=== PATIENT | female | born 1950 | race Two or more races ===

== ENCOUNTER 2021-01-29 11:46 | Outpatient (REF) | payer MEDICARE, SELFPAY ==
--- NOTE | ~2021-01-29 | XR_ITS ---
EXAMINATION: XR KNEE, RIGHT CLINICAL INFORMATION: Pain COMPARISON: None TECHNIQUE: Four views of the right knee. FINDINGS: Bones and soft tissues are normal. No fracture or joint effusion. Alignment is anatomic. Joint spaces are well maintained. No abnormal soft tissue calcification. XR/XR knee RT 3V IMPRESSION: Normal right knee.
== END 2021-01-29 11:47 | disposition home or self-care (01) ==
LOC: HO.XRAY 11:46
PROVIDERS: PCP Internal Medicine; Visit Provider Internal Medicine
DX: M25.561 Pain in right knee (principal)
CPT/HCPCS: 73562

== ENCOUNTER 2021-02-06 10:06 | Outpatient (REF) | payer MEDICARE, SELFPAY ==
[2021-02-06 10:43] LABS: Basophils Absolute Auto 0.1 X10*3/uL (0.0-0.2); Basophils Percent Auto 1.1 % (0-2); Eosinophils Absolute Auto 0.1 X10*3/uL (0.0-0.4); Eosinophils Percent Auto 2.1 % (0-4); Hematocrit 37.6 % (37-47); Hemoglobin 12.3 g/dl (12.0-16.0); Imm Gran Abs Auto 0.01 X10*3/uL (0.00-0.03); Imm Gran Pct Auto 0.2 % (0.0-0.4); Lymphocytes Absolute Auto 3.1 X10*3/uL (1.2-4.9); Lymphocytes Percent Auto 47.8 % (20-40); MANUAL DIFF FLAG NO; Mean Corpuscular HGB Conc 32.7 g/dl (31.0-35.0); Mean Corpuscular Hemoglobin 29.8 pg (27.0-33.0); Mean Platelet Volume 9.8 fL (9.4-12.3); Monocytes Absolute Auto 0.6 X10*3/uL (0.1-1.2); Monocytes Percent Auto 8.4 % (2-11); Neutrophils Absolute Auto 2.7 X10*3/uL (2.0-8.3); Neutrophils Percent Auto 40.4 % (45-73); Platelet Count 286 X10*3/uL (160-400); Red Blood Count 4.13 X10*6/uL (4.20-5.50); Red Cell Distribution Width 13.1 % (11.0-16.0); White Blood Count 6.6 X10*3/uL (4.8-10.8)
[2021-02-06 11:18] LABS: Alanine Aminotransferase 11 U/L (0-31); Albumin Level 4.5 g/dL (3.5-5.0); Alkaline Phosphatase 56 U/L (39-117); Anion Gap 11 (12-20); Aspartate Amino Transferase 18 U/L (5-31); Bilirubin Total 0.9 mg/dL (0.0-1.0); Blood Urea Nitrogen 9 mg/dL (9-16); Calcium 9.7 mg/dL (8.4-10.2); Carbon Dioxide 33 mmol/L (22-29); Chloride 98 mmol/L (96-108); Cholesterol 211 mg/dL; Estimated Glomerular Filt Rate > 60; Glucose Fasting 98 mg/dL (60-99); HDL Cholesterol 77 mg/dL; LDL Cholesterol Calculated 119 mg/dl; Potassium 3.8 mmol/L (3.3-5.1); Sodium 138 mmol/L (135-145); Total Protein 7.2 g/dL (6.5-8.0); Triglycerides 79 mg/dL
[2021-02-06 11:38] LABS: TSH reflex Free T4 0.38 uIU/mL (0.32-4.0)
[2021-02-07 05:12] LABS: Thyroid Peroxidase Antibodies <1 IU/mL (<9)
[2021-02-07 09:07] LABS: Thyroglobulin Antibodies <1 IU/mL (< or = 1)
[2021-02-11 13:56] LABS: Vitamin D 25-OH, D2 <4 ng/mL; Vitamin D 25-OH, D3 13 ng/mL; Vitamin D 25-OH, Total 13 ng/mL (30-100)
== END 2021-02-06 10:07 | disposition home or self-care (01) ==
LOC: HO.LAB 10:06
PROVIDERS: PCP Internal Medicine; Visit Provider Internal Medicine
DX: D64.9 Anemia, unspecified (principal); R11.0 Nausea; I10 Essential (primary) hypertension; E78.5 Hyperlipidemia, unspecified; E04.1 Nontoxic single thyroid nodule; E55.9 Vitamin D deficiency, unspecified
CPT/HCPCS: 36415; 80053; 80061; 82306; 84443; 85025; 86376; 86800

== ENCOUNTER 2021-02-17 12:46 | Outpatient (REF) | payer MEDICARE, SELFPAY ==
--- NOTE | ~2021-02-17 | US_ITS ---
EXAMINATION: US THYROID CLINICAL INFORMATION: Nontoxic single thyroid nodule. COMPARISON: None TECHNIQUE: Linear transducer grayscale and color Doppler examination with attention to the region of the thyroid. FINDINGS: SIZE: Measurements of the thyroid lobes and nodules are given in sagittal, anteroposterior and transverse dimensions respectively. Right Thyroid Lobe: 4.4 x 1.9 x 1.9 cm, volume 8.6 mL. Parenchyma: The gland echotexture is heterogeneous. Thyroid vascularity is normal. Left Thyroid Lobe: 4.5 x 1.7 x 2.0 cm, volume 7.9 mL. Parenchyma: The gland echotexture is heterogeneous. Thyroid vascularity is normal. Isthmus: 0.4 cm in maximum AP dimension. Estimated total number of nodules greater than or equal to 1 cm: 3. 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 Location: Right superior. Size: 1.5 x 0.8 x 1.0 cm, volume 0.64 mL. Nodule characteristics: Composition: Solid (2). Echogenicity: Isoechoic (1). Shape: Not taller than wide (0). Margins: Smooth (0). Echogenic Foci: None (0). ACR TI-RADS total points: 0 ACR TI-RADS category: 3 2. Location: Left mid. Size: 0.8 x 0.7 x 1.0 cm, volume 0.29 mL. Nodule characteristics: Composition: Spongiform (0). Echogenicity: Anechoic (0). Shape: Not taller than wide (0). Margins: Smooth (0). Echogenic Foci: None (0). ACR TI-RADS total points: 0 ACR TI-RADS category: 1 3. Location: Left inferior. Size: 1.8 x 1.2 x 1.7 cm, volume 0.84 mL. Nodule characteristics: Composition: Mixed cystic and solid (1). Echogenicity: Hypoechoic (2). Shape: Not taller than wide (0). Margins: Smooth (0). Echogenic Foci: None (0). ACR TI-RADS total points: 3 ACR TI-RADS category: 3 4. Location: Left mid. Size: 0.4 x 0.5 x 0.7 cm, volume 0.08 mL. Nodule characteristics: Composition: Mixed cystic and solid (1). Echogenicity: Hypoechoic (2). Shape: Not taller than wide (0). Margins: Smooth (0). Echogenic Foci: Punctate echogenic foci (3). ACR TI-RADS total points: 6 ACR TI-RADS category: 4 NODES: No lymphadenopathy is seen in the tissue surrounding the thyroid gland. US/US thyroid IMPRESSION: Bilateral thyroid nodules. Nodules do not meet ACR TI RADS criteria for FNA or imaging follow-up as described below. ACR TI-RADS RECOMMENDATION REFERENCE: Ultrasound-guided fine-needle aspiration, followup ultrasound, no further follow up. * TR1 (0 point) and TR 2 (2 points): No FNA or follow up * TR3 (3 points): FNA if more than or equal to 2.5 cm in maximum dimension, followup ultrasound in 1, 3 and 5 years if 1.5 to 2.4 cm in maximum dimension. * TR4 (4-6 points): FNA if more than or equal to 1.5 cm in maximum dimension, followup ultrasound in 1, 2, 3 and 5 years if 1 to 1.4 cm in maximum dimension. * TR5 (more than or equal to 7 points): FNA if more than or equal to 1 cm in maximum dimension, followup ultrasound every year for 5 years if 0.5 to 0.9 cm in maximum dimension. * TR3, TR4 or TR5 nodules that are below the size threshold for follow up receive no follow up.
== END 2021-02-17 12:47 | disposition home or self-care (01) ==
LOC: HO.US 12:46
PROVIDERS: Visit Provider Internal Medicine
DX: E04.1 Nontoxic single thyroid nodule (principal)
CPT/HCPCS: 76536

== ENCOUNTER → 2021-02-19 10:04 | Outpatient (BNVA) | payer MEDICARE, SELFPAY | PROVIDERS: PCP Internal Medicine; Visit Provider Physician Assistant | DX: M17.11 Unilateral primary osteoarthritis, right knee (principal) | CPT/HCPCS: 99202 ==

== ENCOUNTER 2022-05-21 15:42 | Outpatient (REF) | payer MEDICARE, SELFPAY ==
--- NOTE | ~2022-05-21 | US_ITS ---
EXAMINATION: US THYROID CLINICAL INFORMATION: Nontoxic single thyroid nodule. COMPARISON: Thyroid ultrasound 02/17/2021. TECHNIQUE: Linear transducer grayscale and color Doppler examination with attention to the region of the thyroid. FINDINGS: SIZE: Measurements of the thyroid lobes and nodules are given in sagittal, anteroposterior and transverse dimensions respectively. Right Thyroid Lobe: 3.8 x 1.5 x 1.7 cm, volume 5.1 mL. Previously 4.4 x 1.9 x 1.9 cm, volume 8.5 mL. Parenchyma: The gland echotexture is heterogeneous. Thyroid vascularity is normal. Left Thyroid Lobe: 4.6 x 2.4 x 1.8 cm, volume 10.6 mL. Previously 4.5 x 1.7 x 2.0 cm, volume 7.9 mL. Parenchyma: The gland echotexture is heterogeneous. Thyroid vascularity is normal. Isthmus: 0.3 cm in maximum AP dimension. Previously 0.4 cm. Estimated total number of nodules greater than or equal to 1 cm: 2. Distillery Manager nodules are described as follows: 1. Location: Right upper pole. Size: 1.0 x 1.0 x 0.8 cm, volume 0.43 mL. Previously: 1.5 x 0.8 x 1.0 cm, volume 0.64 mL. Nodule characteristics: Composition: Spongiform (0). ACR TI-RADS total points: 0 Previous: 0 ACR TI-RADS category: 1 Previous: 1 Significant change in size (>/= 20% in 2 dimensions and minimal increase of 2 mm or 50% or greater increase in volume): Change in features: Change in ACR TI-RADS risk category: 2. Location: Left mid pole. Size: 0.8 x 0.7 x 0.6 cm, volume 0.17 mL. Previously: 0.8 x 0.7 x 1.0 cm, volume 0.29 mL. Nodule characteristics: Composition: Spongiform (0). ACR TI-RADS total points: 0 Previous: 0 ACR TI-RADS category: 1 Previous: 1 Significant change in size (>/= 20% in 2 dimensions and minimal increase of 2 mm or 50% or greater increase in volume): Change in features: Change in ACR TI-RADS risk category: 3. Location: Left lower pole. Size: 1.9 x 2.0 x 1.3 cm, volume 2.6 mL. Previously: 1.8 x 1.2 x 1.7 cm, volume 0.8 mL. Nodule characteristics: Composition: Mixed cystic and solid (1). Echogenicity: Hypoechoic (2). Shape: Not taller than wide (0). Margins: Smooth (0). Echogenic Foci: None (0). ACR TI-RADS total points: 3 Previous: 3 ACR TI-RADS category: 3 Previous: 3 Significant change in size (>/= 20% in 2 dimensions and minimal increase of 2 mm or 50% or greater increase in volume): Change in features: Change in ACR TI-RADS risk category: 4. Location: Left mid pole. Size: 0.9 x 0.6 x 0.7 cm, volume 0.14 mL. Previously: 0.4 x 0.5 x 0.7 cm, volume 0.08 mL. Nodule characteristics: Composition: Mixed cystic and solid (1). Echogenicity: Hypoechoic (2). Shape: Not taller than wide (0). Margins: Smooth (0). Echogenic Foci: Macrocalcifications (1). ACR TI-RADS total points: 4 Previous: 6 ACR TI-RADS category: 4 Previous: 4 Significant change in size (>/= 20% in 2 dimensions and minimal increase of 2 mm or 50% or greater increase in volume): Change in features: Change in ACR TI-RADS risk category: NODES: No lymphadenopathy is seen in the tissue surrounding the thyroid gland. US/US thyroid IMPRESSION: Slightly enlarged left lobe. There is interval increase in size in 2 left thyroid nodules, nodules 3 and 4. ACR TI-RADS RECOMMENDATION REFERENCE: Ultrasound-guided fine-needle aspiration, followup ultrasound, no further follow up. * TR1 (0 point) and TR 2 (2 points): No FNA or follow up * TR3 (3 points): FNA if more than or equal to 2.5 cm in maximum dimension, followup ultrasound in 1, 3 and 5 years if 1.5 to 2.4 cm in maximum dimension. * TR4 (4-6 points): FNA if more than or equal to 1.5 cm in maximum dimension, followup ultrasound in 1, 2, 3 and 5 years if 1 to 1.4 cm in maximum dimension. * TR5 (more than or equal to 7 points): FNA if more than or equal to 1 cm in maximum dimension, followup ultrasound every year for 5 years if 0.5 to 0.9 cm in maximum dimension. * TR3, TR4 or TR5 nodules that are below the size threshold for follow up receive no follow up.
== END 2022-05-21 15:43 | disposition home or self-care (01) ==
LOC: HO.US 15:42
PROVIDERS: Visit Provider Internal Medicine
DX: E04.1 Nontoxic single thyroid nodule (principal)
CPT/HCPCS: 76536

== ENCOUNTER 2022-05-26 08:05 | Outpatient (REF) | payer MEDICARE, SELFPAY ==
[2022-05-26 08:21] LABS: MANUAL DIFF FLAG NO
[2022-05-26 09:18] LABS: Basophils Absolute Auto 0.1 X10*3/uL (0.0-0.2); Basophils Percent Auto 0.9 % (0-2); Eosinophils Absolute Auto 0.2 X10*3/uL (0.0-0.4); Eosinophils Percent Auto 2.8 % (0-4); Hematocrit 38.9 % (37.0-47.0); Hemoglobin 12.9 g/dl (12.0-16.0); Imm Gran Abs Auto 0.01 X10*3/uL (0.00-0.03); Imm Gran Pct Auto 0.2 % (0.0-0.4); Lymphocytes Percent Auto 46.6 % (20-40); Mean Corpuscular HGB Conc 33.2 g/dl (31.0-35.0); Mean Corpuscular Hemoglobin 30.1 pg (27.0-33.0); Mean Corpuscular Volume 90.7 fL (80.0-98.0); Mean Platelet Volume 9.8 fL (9.4-12.3); Monocytes Absolute Auto 0.6 X10*3/uL (0.1-1.2); Monocytes Percent Auto 9.1 % (2-11); Neutrophils Absolute Auto 2.6 x10*3/uL (2.0-8.3); Neutrophils Percent Auto 40.4 % (45-73); Platelet Count 288 X10*3/uL (160-400); Red Blood Count 4.29 X10*6/uL (4.20-5.50); Red Cell Distribution Width 13.2 % (11.0-16.0); White Blood Count 6.5 X10*3/uL (4.8-10.8)
[2022-05-26 09:56] LABS: Alanine Aminotransferase 13 U/L (0-31); Albumin Level 4.5 g/dL (3.5-5.0); Alkaline Phosphatase 54 U/L (39-117); Anion Gap 11 (12-20); Aspartate Amino Transferase 20 U/L (5-31); Bilirubin Total 0.7 mg/dL (0.0-1.0); Blood Urea Nitrogen 10 mg/dL (9-16); Calcium 9.6 mg/dL (8.4-10.2); Carbon Dioxide 31 mmol/L (22-29); Chloride 98 mmol/L (96-108); Cholesterol 214 mg/dL; Estimated Glomerular Filt Rate > 60; Glucose Fasting 93 mg/dL (60-99); HDL Cholesterol 81 mg/dL; LDL Cholesterol Calculated 123 mg/dl; Potassium 4.3 mmol/L (3.3-5.1); Sodium 136 mmol/L (135-145); Total Protein 7.2 g/dL (6.5-8.0); Triglycerides 54 mg/dL
[2022-05-26 10:00] LABS: Free T4 (Free Thyroxine) 1.08 ng/dL (0.71-1.85); Thyroid Stimulating Hormone 0.68 uIU/mL (0.32-4.0)
[2022-05-31 14:13] LABS: Vitamin D 25-OH, D2 <4 ng/mL; Vitamin D 25-OH, D3 22 ng/mL; Vitamin D 25-OH, Total 22 ng/mL (30-100)
== END 2022-05-26 08:06 | disposition home or self-care (01) ==
LOC: HO.LAB 08:05
PROVIDERS: PCP Internal Medicine; Visit Provider Internal Medicine
DX: I10 Essential (primary) hypertension (principal); E04.1 Nontoxic single thyroid nodule; E78.5 Hyperlipidemia, unspecified; E55.9 Vitamin D deficiency, unspecified; D32.9 Benign neoplasm of meninges, unspecified; G89.29 Other chronic pain; M25.561 Pain in right knee
CPT/HCPCS: 36415; 80053; 80061; 82306; 84439; 84443; 85025

== ENCOUNTER 2024-07-06 08:10 | Outpatient (AMB) | payer MEDICARE, SELFPAY ==
--- NOTE | 2024-07-06 08:12 | AM.OFFWIN_ITS ---
Intake Vital Signs 07/06/24 08:13 Height 5 ft 1 in Weight 119 lb BMI 22.5 BP 138/88 Blood Pressure Location Lt brachial Position Sitting Pulse 81 Pulse Source Pulse Oximeter Temp 98.4 F Temp Source Oral Pulse Oximetry (%) 98 Oxygen Delivery Method Room Air Intake Visit Reasons: Arthritis in RIght hand pain, and weakness Intake Note: pt c/o RT hand pain and weakness. Started 2 weeks ago. Progressively worse Patient Tobacco Use Status: Former Tobacco user Allergies Hydrocodone-Acetaminophen Allergy (Intermediate, Verified 07/06/24 08:17) hives ibuprofen [From Advil] Allergy (Intermediate, Verified 07/06/24 08:17) Palpitations Do you need a note to return to daycare/school/sports/work: No HPI Arthritis in RIght hand pain, and weakness HPI Details This note is constructed using voice recognition software. 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 The patient is a 74 year old female who presents to the clinic today with right hand pain and weakness progressing over the last 2 weeks. She reports the pain to be in all joints of her hand and into her wrist, and leading inability to have range of motion. She has taken 1 Aleve on an occasional situation, which helped the pain. She does report history of arthritis, but this is typically not impacting her at great level. She denies fever, chills. She has not had any trauma to the area now or in the past, no surgeries to the hand or wrist. She denies numbness, tingling. She is right-hand dominant. [facility]LY [facility] Medical History Acute lateral meniscus tear of right knee Degenerative disc disease, cervical Dyslipidemia Essential hypertension Meningioma Nausea Right knee pain Thyroid nodule Surgical History History of History of left inguinal hernia Family History Mother Hypertension Father Hypertension Son Mental health disorder Social History Housing: Other Housing Other:: Mobile home Alcohol intake: never Patient Tobacco Use Status: Former Tobacco user Tobacco use type: Cigarette e-Cigarette/Vaping Use: Never Used Second Hand Smoke Exposure: No service: No Current occupational status: employed Cognitive needs: No Hearing needs: No Vision needs: No Review of Systems Const All systems reviewed & are unremarkable except as noted in HPI and below Physical Exam Vital Signs: Last Vital Signs Temp 98.4 F 07/06/24 08:13 Pulse 81 07/06/24 08:13 BP 138/88 07/06/24 08:13 Pulse Ox 98 07/06/24 08:13 Oxygen Delivery Method Room Air 07/06/24 08:13 BMI result Body Mass Index 22.5 Const General: cooperative, healthy appearing, comfortable, no acute distress and alert Orientation/consciousness: patient oriented x3 Limitations: no limitations Skin General skin exam: no rashes or lesions noted, elasticity normal and turgor normal Neuro General: patient oriented x3 Extrem Other: Reduced range of motion for hand and wrist due to pain, passive range of motion intact. 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 Patient wearing brace, able to remove the brace. Fingers 2 through 4 with lateral deviation and joint thickening at DIP and PIPs throughout. General: Yes capillary refill normal and Yes normal exam except as noted Psych Appearance: grossly normal Mental Status: mental status grossly normal Speech and movement: Normal speech and movement present Affect: normal affect Assessment & Plan Assessment & Plan (1) Pain in right hand: Code(s): M79.641 - Pain in right hand Plan: Likely multifactorial, appears to be both a tendinitis as well as arthritic contributing factors. Advised rest, compression, and NSAIDs for pain management. X-ray today ordered to evaluate for any additional contributing factors. Advised patient to follow up with PCP for long-term management if needed. (2) Pain in right wrist: Code(s): M25.531 - Pain in right wrist Plan: Likely multifactorial, appears to be both a tendinitis as well as arthritic contributing factors. Advised rest, compression, and NSAIDs for pain management. X-ray today ordered to evaluate for any additional contributing factors. Advised patient to follow up with PCP for long-term management if needed. Plan See above for full details and plan. Orders: Orders XR hand RT min 3V Today M79.641 - Pain in right hand XR wrist RT 2V Today M25.531 - Pain in right wrist Coding Level of Care Code Est Pt Level 4 (46349) Diagnoses Pain in right hand M79.641 Pain in right wrist M25.531 Time Spent (min) 25
[2024-07-06 08:13] VITALS: BP 138/88; PULSE 81; TEMP 36.9; O2SAT 98; BMI 22.5
== END 2024-07-06 09:07 | disposition home or self-care (01) ==
PROVIDERS: PCP Internal Medicine; Visit Provider Registered Nurse
DX: M79.641 Pain in right hand (principal); M25.531 Pain in right wrist
CPT/HCPCS: 99214

== ENCOUNTER 2024-07-06 08:45 | Outpatient (REF) | payer MEDICARE, SELFPAY ==
--- NOTE | ~2024-07-06 | XR_ITS ---
EXAMINATION: XR HAND/WRIST, RIGHT CLINICAL INFORMATION: Pain COMPARISON: None TECHNIQUE: PA, lateral, and oblique views of the right hand and wrist. FINDINGS: Decreased bone mineral density which decreases sensitivity for fracture evaluation. No acute visible fracture or dislocation. Multi joint arthritic changes greatest along the second through fifth proximal interphalangeal joints. Negative ulnar variance. Joint space alignment are maintained. Soft tissues are unremarkable. XR/XR hand wrist RT IMPRESSION: 1. Decreased bone mineral density which decreases sensitivity for fracture evaluation. 2. No acute visible fracture or dislocation. 3. Multi joint arthritic changes greatest along the second through fifth proximal interphalangeal joints. 4. Negative ulnar variance.
== END 2024-07-06 08:46 | disposition home or self-care (01) ==
LOC: HO.HMGCX 08:45
PROVIDERS: PCP Internal Medicine; Visit Provider Registered Nurse
DX: M79.641 Pain in right hand (principal)
CPT/HCPCS: 73110; 73130

== ENCOUNTER 2024-07-15 09:05 | Outpatient (AMB) | payer MEDICARE, SELFPAY ==
[2024-07-15 09:08] VITALS: BP 160/90; PULSE 97; O2SAT 97; BMI 22.5
--- NOTE | 2024-07-15 09:08 | AM.OFFWIN_ITS ---
Intake Vital Signs 07/15/24 09:08 Height 5 ft 1 in Weight 119 lb BMI 22.5 BP 160/90 H Blood Pressure Location Rt brachial Position Sitting Pulse 97 Pulse Source Pulse Oximeter Pulse Oximetry (%) 97 Oxygen Delivery Method Room Air Intake Visit Reasons: EP RT wrist Intake Note: pt is here for right wrist pain Patient Tobacco Use Status: Former Tobacco user Allergies Hydrocodone-Acetaminophen Allergy (Intermediate, Verified 07/15/24 09:08) hives ibuprofen [From Advil] Allergy (Intermediate, Verified 07/15/24 09:08) Palpitations Do you need a note to return to daycare/school/sports/work: No HPI HPI Comments History of Present Illness Details 74-year-old female who presents back to the urgent care for concern of right wrist pain. Patient was seen evaluated last week for right wrist pain and x-rays were taken and diagnosed with arthritis. She endorses same pain with now more pain centered on the wrist middle of the hand and decreased rat trapper strength. She also endorses some numbness and tingling in the 1st 3 digits. She knows that she had carpal tunnel surgery in 1999 back in [place] and was told that she could need for intervention later down the line. 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 She has been using a splint and taking Naprosyn with some relief [facility] Medical History Acute lateral meniscus tear of right knee Degenerative disc disease, cervical Dyslipidemia Essential hypertension Meningioma Nausea Right knee pain Thyroid nodule Surgical History History of History of left inguinal hernia Family History Mother Hypertension Father Hypertension Son Mental health disorder Social History Housing: Other Housing Other:: Mobile home Alcohol intake: never Patient Tobacco Use Status: Former Tobacco user Tobacco use type: Cigarette e-Cigarette/Vaping Use: Never Used Second Hand Smoke Exposure: No service: No Current occupational status: employed Cognitive needs: No Hearing needs: No Vision needs: No Physical Exam Vital Signs: Last Vital Signs Pulse 97 07/15/24 09:08 BP 160/90 H 07/15/24 09:08 Pulse Ox 97 07/15/24 09:08 Oxygen Delivery Method Room Air 07/15/24 09:08 BMI result Body Mass Index 22.5 Const General: cooperative, healthy appearing, no acute distress and alert Orientation/consciousness: patient oriented x3 Limitations: no limitations HEENT Head: Yes normal to inspection Ears: hearing grossly normal bilaterally General nose exam: Normal external nose present Resp Effort & Inspection: normal respiratory effort and able to speak in complete sentences Cardio Rate: regular rate Skin General skin exam: no rashes or lesions noted Neuro General: patient oriented x3 Extrem Other: No overt swelling of the right wrist no warmth or erythema. Ulnar deviation of the digits. Tenderness to palpation over the volar aspect of the wrist decreased sensation along the 1st 3 digits decreased rat trapper strength 2/5 of the right wrist compared to the left General: Yes normal to inspection Assessment & Plan Assessment & Plan (1) Wrist pain: Code(s): M25.539 - Pain in unspecified wrist Qualifiers: Laterality: right Qualified Code(s): M25.531 - Pain in right wrist Plan: Given physical exam patient presentation of suspicion is carpal tunnel. Patient likely will need evaluation from orthopedics. Redness injections or revision. Given already deviation there is a consideration of rheumatologic related arthritis. However given the only present in 1 hand lower suspicion. Do recommend patient follow-up with PCP to discuss possible rheumatologic causes. With tenderness to palpation over the volar aspect of the wrist numbness and tingling decreased rat trapper strength a positive Phalen test more suspicion of acute pain related to her carpal tunnel however both could be present. Plan -continue with symptomatic treatment splinting and OTC pain medications -orthopedic referral Orders: Referrals Orthopedics Referral M25.531 - Pain in right wrist Coding Level of Care Code Est Pt Level 3 (28822) Diagnoses Right wrist pain M25.531 Laterality: right
== END 2024-07-15 09:58 | disposition home or self-care (01) ==
PROVIDERS: PCP Internal Medicine; Visit Provider Physician Assistant
DX: M25.531 Pain in right wrist (principal)
CPT/HCPCS: 99213

== ENCOUNTER 2024-08-16 07:55 | Outpatient (AMB) | payer MEDICARE, SELFPAY ==
--- NOTE | 2024-08-16 08:20 | A.OFFVIS_ITS ---
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 Hx of Carpal Tunnel Release. Patient reports at the end of May she started feeling numbness and thought her CTS was returning. She started noticing her hand was turning laterally. She says her hand was severely swollen and she was waking up in the middle of the night with extreme throbbing pain so she went to [facility] in [facility] twice, 07/06/24 & 07/15/24. She is having complaints during this visit of throbbing pain. She can not walk with her hand hanging down as this causes her more pain so she walks with her hand against her chest. Her right hand is noticeably swollen. She is unable to make a full closed fist. She reports difficulty with any activities that involve her right hand. She expresses when her hand is not swollen she has more sensation in her hands. She sleeps with a glove at night to try and relief her pain. If she is not wearing the glove she has an exacerbation of pain. She has tried Tylenol and Aleve but found no relief. 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 Patient reports that she does have a history of carpal tunnel release on the right, done in approximately 2018 or 2019 and [place]. Today, the patient reports that she has been experiencing significant discomfort in her right hand since May, and then her numbness and tingling is intermittent, but daily, and much worse at night. Approximately 1 month ago, the patient states that she also noticed that all of her fingers began to deviate to the ulnar aspect, warranting further concern. Patient reports that she has continued to do as many activities of daily life as possible, but states that she does feel this is still limiting her ability to perform these activities significantly. Patient reports no other acute complaints or concerns at this time. [facility] Medical History Acute lateral meniscus tear of right knee Degenerative disc disease, cervical Dyslipidemia Essential hypertension Meningioma Nausea Right knee pain Thyroid nodule Surgical History History of History of left inguinal hernia Family History Mother Hypertension Father Hypertension Son Mental health disorder Social History (Updated 08/16/24 @ 08:23 by ROLLY Zepeda) Housing: Other Housing Other:: Mobile home Alcohol intake: never Patient Tobacco Use Status: Former Tobacco user Tobacco use type: Cigarette e-Cigarette/Vaping Use: Never Used Second Hand Smoke Exposure: No service: No Current occupational status: employed 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 Patient reports diminished sensation to the small finger of the left hand Bilateral thenar wasting noted No intrinsic wasting noted We can APB muscle belly firing bilaterally Good finger cross his Vascular: Capillary refill brisk. ROM: With encouragement, patient is able to get close to making a closed fist on the right, but is unable to fully close her fist due to pain Patient is able to make a closed fist on the left without difficulty Skin: No lacerations or abrasions noted. General: No ecchymosis. No erythema or evidence of infection. There is noted to be sagittal band dysfunction over the dorsal MCP joints of the right index and middle fingers, with the extensor tendon being ulnar deviated on both digits Results Reviewed Results Reviewed: X-rays obtained in the office today and independently reviewed by me, Carlo Rodriguez PA-C, demonstrate no fracture or acute bony abnormality. 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 Numbness and tingling of bilateral hands 2. 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 Right hand pain Ongoing since May Symptoms almost constant, daily, worse at night At this time, patient is referred for EMG and nerve conduction study to assess the health of the nerves of bilateral hands Patient is amenable to this plan Patient is also referred to Dr. Bustos, per Dr. Bustos request, for discussion of any potential intervention for ulnar deviation of her digits and sagittal band disruption, as these can be symptoms of rheumatoid arthritis Patient is also amenable to this plan Patient will follow-up with next available [address] 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
[2024-08-16 08:21] VITALS: BMI 22.5
== END 2024-08-16 08:56 | disposition home or self-care (01) ==
PROVIDERS: PCP Internal Medicine
DX: S66.392A Other injury of extensor muscle, fascia and tendon of right middle finger at wrist and hand level, initial encounter (principal); S66.390A Other injury of extensor muscle, fascia and tendon of right index finger at wrist and hand level, initial encounter; R20.0 Anesthesia of skin; R20.2 Paresthesia of skin
CPT/HCPCS: 99203

== ENCOUNTER → 2024-08-16 07:55 | Outpatient (BNVA) | payer MEDICARE, SELFPAY | PROVIDERS: PCP Internal Medicine | DX: M79.641 Pain in right hand (principal); S63.659A Sprain of metacarpophalangeal joint of unspecified finger, initial encounter; R20.0 Anesthesia of skin; R20.2 Paresthesia of skin; X58.XXXA Exposure to other specified factors, initial encounter; Y93.9 Activity, unspecified; Y92.9 Unspecified place or not applicable; Y99.9 Unspecified external cause status | CPT/HCPCS: 99202 ==

== ENCOUNTER 2024-12-04 15:37 | Outpatient (AMB) | payer MEDICARE, SELFPAY ==
--- NOTE | 2024-12-04 15:50 | MHC.PC.OV ---
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 Accompanied by: Self / Same As Patient Allergies Hydrocodone-Acetaminophen Allergy (Intermediate, Verified 12/04/24 15:54) hives ibuprofen [From Advil] Allergy (Intermediate, Verified 12/04/24 15:54) Palpitations Tobacco use date assessed: 12/04/24 Fall risk assessment: No Falls in past year Last assessed Fall Risk: 12/04/24 Dental Screening Dental Screen Date: 12/04/24 Did you have a dental visit in the last 12 months?: No Did you have a dental problem in the last 6 months where you did not have access to dental care?: No Was dental information given to patient?: Patient has dentist HPI HPI Comments History of Present Illness Details The patient is a 74-year-old female presenting with bilateral hand pain. She reports experiencing bilateral hand weakness, stiffness, and pain, particularly severe in the mornings. These symptoms have been present since April, with her hands becoming numb and the right hand being worse than the left. She described the pain sensation as significant, to the extent that she cannot perform simple tasks such as squeezing or combing her hair without difficulty. Additionally, she experiences intermittent numbness in her fingers. She referred to engaging in exercises available online, which have slightly helped in managing her symptoms. No formal consultation with a identity management consultant has occurred due to lengthy appointment wait times. In 2019, prior laboratory results showed negative anti-cyclic citrullinated peptide (CCP) and rheumatoid factor tests. Despite these findings, the patient describes the right-hand deformity and progressive weakness. She also noted symptoms in her feet, suggesting possible similar pathology. She maintains a high tolerance for pain and has avoided pharmacotherapy, preferring alternative therapies. She also has hypertension in which blood pressure is elevated today and will be recheck in 3 weeks by nurse navigator. She took her hydrochlorothiazide today. Has low vitamin-D on supplements. She declines colonoscopy, colon cancer screening test by Cologuard or fit and mammogram. [facility] Medical History (Updated 12/04/24 @ 20:25 by Nubia Lam MD) Meningioma Acute lateral meniscus tear of right knee Dyslipidemia Right knee pain Degenerative disc disease, cervical Nausea Essential hypertension Thyroid nodule Surgical History History of left inguinal hernia History of Family History Mother Hypertension Father Hypertension Son Mental health disorder Social History Housing: Other Housing Other:: Mobile home Alcohol intake: never Patient Tobacco Use Status: Former Tobacco user Tobacco use type: Cigarette e-Cigarette/Vaping Use: Never Used Second Hand Smoke Exposure: No service: No Current occupational status: employed 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 1. Little interest or pleasure in doing things: not at all 2. Feeling down, depressed, or hopeless: not at all 3. Trouble falling or staying asleep, or sleeping too much: not at all 4. Feeling tired or having little energy: not at all 5. Poor appetite or overeating: not at all 6. Feeling bad about yourself - or that you are a failure or have let yourself or your family down: not at all 7. Trouble concentrating on things, such as reading the newspaper or watching television: not at all 8. Moving or speaking so slowly that other people could have noticed. Or the opposite - being so fidgety or restless that you have been moving around a lot more than usual: not at all 9. Thoughts that you would be better off or of hurting yourself in some way: not at all Total score: 0 Depression Screening Interpretation: Negative Depression Screening Done: Yes 72106 - PHQ-9 Billing: Yes Source: Developed by Drs. Ronnie Brannon, Diamond Rodriguez, Ray Howard and colleagues, with an educational imani from [employer]. Thrive Questionnaire Date Thrive assessed: 12/04/24 I am a: Patient What is your living situation today?: I have a steady place to live Within the past 12 months, did the food you bought not last and you didn't have the money to get more?: Never true Within the past 12 months, did you worry whether your food would run out before you got money to buy more?: Never true Do you have trouble paying for medicines?: No Do you have trouble getting transportation to medical appointments?: No Do you have trouble paying your heating and electricity bill?: No Do you have trouble taking care of your child, family member or friend?: No Do you have trouble with day-to-day activities such as bathing, preparing meals, shopping, managing finances, etc.?: No Are you currently unemployed and looking for a job?: No Are you interested in more education?: No Please select the resources that you would like help with: None Currently or been in a relationship where the following occur: No concerns reported THRIVE Score: 0 AUDIT C Alcohol Use Questionnaire (AUDIT-C) 1. How often do you have a drink containing alcohol?: Never Total Score: 0 Score Reviewed/Action Taken: No PAN-7 AMB Questionnaire PAN-7 Date PAN - 7 assessed: 12/04/24 Feeling nervous, anxious, or on edge: 0 = Not at all Not being able to stop or control worryin = Not at all Worrying too much about different things: 0 = Not at all Trouble relaxin = Not at all Being so restless that it is hard to sit still: 0 = Not at all Becoming easily annoyed or irritable: 0 = Not at all Feeling afraid as if something awful might happen: 0 = Not at all Total PAN-7 score (0-4 normal; 5-9 mild; 10-14 moderate; 15-21 severe): 0 Source: Developed by Drs. Ronnie Brannon, Diamond Rodriguez, Ray Howard and colleagues, with an educational imani from [employer]. PAN-7 Assessment Billing PAN-7 Assessment Tool: PAN-7 Assessment 89723 Review of Systems Const All systems reviewed & are unremarkable except as noted in HPI and below Card Denies chest pain at rest, Denies chest pain with activity, Denies edema, Denies irregular heart rhythm, Denies claudication, Denies dyspnea, Denies dyspnea on exertion, Denies orthopnea, Denies paroxysmal nocturnal dyspnea and Denies slow heart rate Resp Denies cough, Denies dyspnea and Denies dyspnea on exertion GI Denies abdominal pain, Denies change in bowel habits, Denies excessive flatus, Denies nausea and Denies vomiting Musc Reports arthralgias and Reports numbness Neuro Reports numbness Physical exam (Primary Care) Vital Signs: Last Vital Signs BP 164/110 H 12/04/24 15:51 BMI result Body Mass Index 22.1 Tobacco/Smoking Status: Tobacco use Status Tobacco use date assessed 12/04/24 12/04/24 16:00 Patient Tobacco Use Status Former Tobacco user 12/04/24 16:00 Tobacco use type Cigarette 12/04/24 16:00 e-Cigarette/Vaping Use Never Used 12/04/24 16:00 PHQ-9: PHQ-9 Score PHQ-9: Total score 0 12/04/24 16:21 Depression Screening Interpretation: Negative Thrive Assessment: Date of Thrive Assessment Date Thrive assessed 12/04/24 12/04/24 16:00 Currently or been in a relationship where the following occur: No concerns reported Resp Effort & Inspection: normal respiratory effort Auscultation: clear to auscultation bilaterally Cardio Jugular venous distension: no JVD Rate: regular rate Rhythm: regular rhythm Heart sounds: S1 normal heart sound present and S2 normal heart sound present Extrem General: Yes full ROM Office Procedures Flu Questionnaire Does the patient have a severe egg allergy?: No Immunizations Fluarix Triv [id number] (PF) 45 mcg (15 mcg x 3)/0.5 mL IM syringe Performing Provider: Nubia Lam MD [facility] Documented (not given) by: SUSANA Muller on 12/04/24 16:02 Reason Not Given: Patient Refused Coding Level of Care Code Est Pt Level 4 (84590) Complex EM visit Add On G2211 Diagnoses Essential hypertension I10 Left hand pain M79.642 Right hand pain M79.641 Polyarthralgia M25.50 Hypovitaminosis D E55.9 Additional Codes PAN-7 Assessment Billing - PAN-7 Assessment Tool: PAN-7 Assessment 53461 ([id number]) PHQ-9 - 16188 - PHQ-9 Billing: Yes ([id number]) Time Spent (min) 22 Assessment & Plan Assessment & Plan (1) Essential hypertension: Code(s): I10 - Essential (primary) hypertension Category: Medical (2) Left hand pain: Code(s): M79.642 - Pain in left hand Category: Medical (3) Right hand pain: Code(s): M79.641 - Pain in right hand Category: Medical (4) Polyarthralgia: Code(s): M25.50 - Pain in unspecified joint Category: Medical (5) Hypovitaminosis D: Code(s): E55.9 - Vitamin D deficiency, unspecified Category: Medical Plan - Laboratory tests: Order repeat rheumatoid arthritis panels, including anti-CCP and rheumatoid factor. - Consider nerve conduction studies for further assessment of potential carpal tunnel syndrome. - Recommend consultation with a identity management consultant for comprehensive management of rheumatoid arthritis. - Consider vitamin and D measurements to assess contributing factors to musculoskeletal pain. Patient was informed and verbally consented to the use of an ambient scribe for clinic note documentation during this visit. I discussed with the patient the importance of maintaining regular check-ups given her age and chronic conditions. Reviewed her prior negative lab results and explained the need for updated testing to accurately monitor her rheumatoid arthritis. Emphasized the potential benefits of consulting a identity management consultant. Discussed the use of vitamin supplements for bone health, particularly in light of potential osteoporosis due to her age. Clarified that carpal tunnel syndrome might still be a consideration due to positive Tinel's sign. Informed her about the risks and benefits of both laboratory and nerve conduction tests. The patient expressed understanding but voiced a preference for minimal medical intervention, which will guide management decisions. Orders: Orders Influenza [id number] Immunization Today Z23 - Encounter for immunization XR hand RT 2V Today M79.641 - Pain in right hand XR hand LT 2V Today M79.642 - Pain in left hand XR DEXA axial skeleton Today Z78.0 - Asymptomatic menopausal state Vitamin B12 and Folate Today E53.8 - Deficiency of other specified B group vitamins Cyclic Citrullinated Peptide Today M25.50 - Pain in unspecified joint Vitamin D 25-OH Total Today E55.9 - Vitamin D deficiency, unspecified Lipid Panel Today E78.5 - Hyperlipidemia, unspecified Comprehensive [place]. Panel Fast Today M25.50 - Pain in unspecified joint Erythrocyte Sedimentation Rate Today M25.50 - Pain in unspecified joint Rheumatoid Factor Today M25.50 - Pain in unspecified joint Referrals Rheumatology Referral M25.50 - Pain in unspecified joint Orthopedics Referral M79.641 - Pain in right hand, M79.642 - Pain in left hand Patient Instructions: - Schedule and complete ordered lab tests for arthritis. - Consider scheduling an appointment with a identity management consultant. - Engage in continued exercises as previously beneficial. - Monitor symptoms and contact the office if there is a significant change. - Consider taking vitamin supplements for bone health. - Discuss any new symptoms during follow-up visits.
[2024-12-04 15:51] VITALS: BP 164/110; BMI 22.1
== END 2024-12-04 16:40 | disposition home or self-care (01) ==
PROVIDERS: PCP Internal Medicine; Visit Provider Internal Medicine
DX: I10 Essential (primary) hypertension (principal); M79.642 Pain in left hand; M79.641 Pain in right hand; M25.50 Pain in unspecified joint; E55.9 Vitamin D deficiency, unspecified; Z23 Encounter for immunization

== ENCOUNTER → 2024-12-04 15:37 | Outpatient (BNVA) | payer MEDICARE, SELFPAY | PROVIDERS: PCP Internal Medicine; Visit Provider Internal Medicine | DX: M79.642 Pain in left hand (principal); M79.641 Pain in right hand; M25.50 Pain in unspecified joint; E55.9 Vitamin D deficiency, unspecified; I10 Essential (primary) hypertension | CPT/HCPCS: 90471; 96127; 99212 ==

== ENCOUNTER 2024-12-15 07:12 | Outpatient (REF) | payer MEDICARE, SELFPAY ==
[2024-12-15 08:48] LABS: Alanine Aminotransferase 18 U/L (0-31); Albumin Level 4.1 g/dL (3.5-5.0); Anion Gap 11 (12-20); Aspartate Amino Transferase 27 U/L (5-31); Bilirubin Total 0.6 mg/dL (0.0-1.0); Blood Urea Nitrogen 9 mg/dL (9-16); Calcium 9.4 mg/dL (8.4-10.2); Carbon Dioxide 28 mmol/L (22-29); Chloride 103 mmol/L (96-108); Cholesterol 189 mg/dL (<200); Estimated Glomerular Filt Rate > 60; Glucose Fasting 92 mg/dL (60-99); HDL Cholesterol 77 mg/dL (>40); LDL Cholesterol Calculated 102 mg/dL (<100); Potassium 3.9 mmol/L (3.3-5.1); Sodium 138 mmol/L (135-145); Total Protein 7.3 g/dL (6.5-8.0); Triglycerides 50 mg/dL (<150)
[2024-12-15 08:57] LABS: Rheumatoid Factor < 13.0 IU/mL (<15.0)
[2024-12-15 09:11] LABS: Erythrocyte Sedimentation Rate 6 MM/HR (0-20)
[2024-12-15 09:16] LABS: Folate 9.3 ng/mL (> or = 4.0); Vitamin B12 287 pg/mL (200-900)
[2024-12-15 14:20] LABS: Alkaline Phosphatase 64 U/L (39-117)
[2024-12-19 07:09] LABS: Cyclic Citrullinated Peptide <16 UNITS
== END 2024-12-15 07:13 | disposition home or self-care (01) ==
LOC: HO.LAB 07:12
PROVIDERS: PCP Internal Medicine; Visit Provider Internal Medicine
DX: M25.50 Pain in unspecified joint (principal); E55.9 Vitamin D deficiency, unspecified; E53.8 Deficiency of other specified B group vitamins; E78.5 Hyperlipidemia, unspecified
CPT/HCPCS: 36415; 80053; 80061; 82306; 82607; 82746; 85652; 86200; 86431

== ENCOUNTER 2024-12-16 10:07 | Outpatient (REF) | payer MEDICARE, SELFPAY ==
--- NOTE | ~2024-12-16 | XR_ITS ---
EXAMINATION: XR HAND 1-2 VIEWS RIGHT HISTORY: M79.641 - Pain in right hand COMPARISON: Comparison is made with the prior examination dated 07/06/2024. FINDINGS: Three views of the right hand are submitted. The bones are osteopenic. There is no fracture or dislocation. There is ulnar deviation of the 3rd, 4th, and 5th fingers at the MCP joints. There is mild narrowing of the DIP and PIP joints of all the fingers. No erosions are seen. The soft tissues are unremarkable. XR/XR hand RT 2V IMPRESSION: Osteopenia and osteoarthritis of the DIP and PIP joints. Ulnar deviation of the 3rd through 5th fingers at the MCP joints. Electronically signed by: Ronnie Amin MD 12/18/2024 09:44 AM DOUG
--- NOTE | ~2024-12-16 | XR_ITS ---
EXAMINATION: XR HAND 1-2 VIEWS LEFT HISTORY: M79.642 - Pain in left hand COMPARISON: Comparison is made with the prior examination dated 03/13/2019. FINDINGS: Three views of the left hand are submitted. The bones are osteopenic. There is no fracture or dislocation. There is mild narrowing of the DIP and PIP joints. There is moderate to severe osteoarthritis of the 1st carpometacarpal joint with joint space narrowing and osteophyte formation. The soft tissues are unremarkable. XR/XR hand LT 2V IMPRESSION: Osteopenia. Severe osteoarthritis of the 1st carpometacarpal joint. Mild narrowing of the DIP and PIP joints. Electronically signed by: Ronnie Amin MD 12/18/2024 09:46 AM EST
--- OUTSIDE RECORDS SUMMARY | 2024-12-16 10:09 | XMS_ITS | Clinical Summary ---
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 Role Phone Unavailable Primary Care Provider Unavailabl e Social History Tobacco Use Types Packs/Day Years Used Date Smoking Tobacco: Never Assessed Sex and Gender Information Value Date Recorded Sex Assigned at Not on file Gender Identity Not on file Sexual Orientation Not on file Plan of Treatment Health Maintenance Due Date Last Done Comments Breast Cancer Screening 1950 DTaP,Tdap,and Td Vaccines (1 - Tdap) 1970 Zoster Vaccines (1 of 2) 2001 Pneumococcal Vaccine: 65+ Ye ars (1 of 1 - PCV) 02/14/2016 COVID-19 Vaccine ( - 2023-2 5 season) 2024 Influenza Vaccine (#1) 2024 RSV Immunization Patients 60 + Years Old (1 - 1-dose 75+ series) 2026 HIB Vaccines Aged Out No longer eligi ble based on patient's age to complete this topic HPV Vaccines Aged Out No longer eligi ble based on patient's age to complete this topic Hepatitis A Vaccines Aged Out No long er eligible based on patient's age to complete this topic Hepatitis B Vaccines Aged Out No long er eligible based on patient's age to complete this topic IPV Vaccines Aged Out No longer eligi ble based on patient's age to complete this topic MMR Vaccines Aged Out No longer eligi ble based on patient's age to complete this topic Meningococcal ACWY Vaccine Aged Out N o longer eligible based on patient's age to complete this topic RSV Immunization Patients Un martin 20 months Aged Out No longer eligible b ased on patient's age to complete this topic Varicella Vaccines Aged Out No longer eligible based on patient's age to complete this topic
== END 2024-12-16 10:08 | disposition home or self-care (01) ==
LOC: HO.XRAY 10:07
PROVIDERS: PCP Internal Medicine; Visit Provider Internal Medicine
DX: M79.641 Pain in right hand (principal); M79.642 Pain in left hand
CPT/HCPCS: 73120

== ENCOUNTER → 2024-12-16 10:13 | Outpatient (BNV) | payer MEDICARE, SELFPAY | PROVIDERS: PCP Internal Medicine; Visit Provider Radiology Diagnostic Radiology | DX: M85.841 Other specified disorders of bone density and structure, right hand (principal); M19.041 Primary osteoarthritis, right hand; M85.842 Other specified disorders of bone density and structure, left hand; M19.042 Primary osteoarthritis, left hand; M18.12 Unilateral primary osteoarthritis of first carpometacarpal joint, left hand; M20.001 Unspecified deformity of right finger(s) | CPT/HCPCS: 73120 ==

== ENCOUNTER 2025-01-03 07:47 | Outpatient (REF) | payer MEDICARE, SELFPAY ==
--- NOTE | ~2025-01-03 | XR_ITS ---
EXAMINATION: XR HAND, RIGHT CLINICAL INFORMATION: M79.641 - Pain in right hand COMPARISON: 12/16/2024. 07/06/2024. TECHNIQUE: PA, lateral, and oblique views of the right hand. FINDINGS: Three views of the right hand are submitted. The bones are osteopenic. There is no fracture or dislocation. There is ulnar deviation of the 3rd, 4th, and 5th fingers at the MCP joints, with associated joint space loss most significant third MCP. No definitive erosions evident. There is mild narrowing of the DIP and PIP joints of all the fingers, with productive bony changes. Mild to moderate osteoarthrosis first CMC joint and STT joints. Blunting of the ulnar styloid. Mild soft tissue prominence overlying the MCPs. XR/XR hand RT min 3V IMPRESSION: Osteopenia with associated multifocal arthropathy as described. Findings support changes of rheumatoid arthritis, likely in conjunction with degenerative arthritis. Electronically signed by: Candelario Ken MD 01/03/2025 08:30 AM DOUG
--- NOTE | ~2025-01-03 | XR_ITS ---
EXAMINATION: XR HAND, LEFT CLINICAL INFORMATION: M79.642 - Pain in left hand COMPARISON: December 16, 2024. TECHNIQUE: PA, lateral, and oblique views of the left hand. FINDINGS: There is a semiflexion position of the distal and proximal interphalangeal joints of the second digit. There is a asymmetric joint space narrowing involving the proximal and distal interphalangeal joints. Sclerotic articular surface of the first carpometacarpal joint. No acute cortical disruption or gross malalignment. Osteopenia versus osteoporosis. No metallic or radiopaque foreign body. No subcutaneous emphysema. XR/XR hand LT min 3V IMPRESSION: Osteoarthrosis, first carpometacarpal joint and interphalangeal joints of the digits. Electronically signed by: Michael Boswell MD 01/03/2025 08:28 AM DOUG SO
== END 2025-01-03 07:48 | disposition home or self-care (01) ==
LOC: HO.HOSX 07:47
PROVIDERS: PCP Internal Medicine
DX: M79.641 Pain in right hand (principal); M79.642 Pain in left hand; R20.0 Anesthesia of skin; R20.2 Paresthesia of skin
CPT/HCPCS: 73130; 99212

== ENCOUNTER 2025-01-03 07:47 | Outpatient (AMB) | payer MEDICARE, SELFPAY ==
--- OUTSIDE RECORDS SUMMARY | 2025-01-03 07:50 | XMS_ITS | Clinical Summary ---
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
--- NOTE | 2025-01-03 08:04 | MHC.OFFVIS ---
Vital Signs 01/03/25 08:20 Height 5 ft Weight 110 lb BMI 21.5 Handedness Right Intake Visit Reasons: OV - B/L hand pain Intake Note: Adri is a 74 year old right hand dominant female who presents today for a new problem visit for evaluation of bilateral hand osteoarthritis/pain. Patient reports ongoing pain for a couple of years. She states that her right hand is worse than the left hand. Patient reports that her right hand is weaker than the left hand. Patient notices that her pain is in the morning. She finds that her compression gloves gives her support. Allergies Hydrocodone-Acetaminophen Allergy (Intermediate, Verified 01/03/25 08:21) hives ibuprofen [From Advil] Allergy (Intermediate, Verified 01/03/25 08:21) Palpitations HPI HPI OV - B/L hand pain: Details: Adri is a 74 year old right hand dominant female who presents today for a new problem visit for evaluation of bilateral hand osteoarthritis/pain. Patient reports ongoing pain for a couple of years. She states that her right hand is worse than the left hand. Patient reports that her right hand is weaker than the left hand. Patient notices that her pain is in the morning. She finds that her compression gloves gives her support. [facility] Medical History Meningioma Acute lateral meniscus tear of right knee Dyslipidemia Right knee pain Degenerative disc disease, cervical Nausea Essential hypertension Thyroid nodule Surgical History History of left inguinal hernia History of Family History Mother Hypertension Father Hypertension Son Mental health disorder Social History Housing: Other Housing Other:: Mobile home Alcohol intake: never Patient Tobacco Use Status: Former Tobacco user Tobacco use type: Cigarette e-Cigarette/Vaping Use: Never Used Second Hand Smoke Exposure: No service: No Current occupational status: employed 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 Diminished sensation to the small finger of the left hand Bilateral thenar wasting noted No intrinsic wasting noted We can APB muscle belly firing bilaterally Good finger cross his Vascular: Capillary refill brisk. ROM: With encouragement, patient is able to get close to making a closed fist on the right, but is unable to fully close her fist due to pain Patient is able to make a closed fist on the left without difficulty Skin: No lacerations or abrasions noted. General: No ecchymosis. No erythema or evidence of infection. There is noted to be sagittal band dysfunction over the dorsal MCP joints of the right index and middle fingers, with the extensor tendon being ulnar deviated on both digits Assessment & Plan Assessment & Plan (1) Numbness and tingling in both hands: Code(s): R20.0 - Anesthesia of skin; R20.2 - Paresthesia of skin Category: Medical (2) Right hand pain: Code(s): M79.641 - Pain in right hand Category: Medical Plan 1. Bilateral hand pain 2. Bilateral hand numbness and tingling Ongoing since May Symptoms almost constant, daily, worse at night At this time patient states that she would not like EMG or nerve conduction study, as her pain is most bothersome and she attributes this to arthritis Patient states she has been told multiple times that she likely has rheumatoid arthritis, and does have a referral into a contracts advisor from her primary care provider Patient was offered a referral to occupational therapy, but declines Patient was provided with bilateral Velcro wrist splints to be worn at night or when her wrist is particularly painful Patient can follow-up as needed with any acute concerns Orders: Orders XR hand LT min 3V Today M79.642 - Pain in left hand XR hand RT min 3V Today M79.641 - Pain in right hand Coding Level of Care Code Est Pt Level 3 (15553) Diagnoses Numbness and tingling in both hands R20.0; R20.2 Right hand pain M79.641
[2025-01-03 08:20] VITALS: BMI 21.5
== END 2025-01-03 08:41 | disposition home or self-care (01) ==
PROVIDERS: PCP Internal Medicine
DX: R20.0 Anesthesia of skin (principal); R20.2 Paresthesia of skin; M79.641 Pain in right hand
CPT/HCPCS: 99213

== ENCOUNTER → 2025-01-03 08:06 | Outpatient (BNV) | payer MEDICARE, SELFPAY | PROVIDERS: PCP Internal Medicine; Visit Provider Radiology Diagnostic Radiology | DX: M79.641 Pain in right hand (principal); M79.642 Pain in left hand | CPT/HCPCS: 73130 ==

== ENCOUNTER 2025-01-05 07:49 | Outpatient (REF) | payer MEDICARE, SELFPAY ==
--- NOTE | ~2025-01-05 | MM_ITS ---
EXAMINATION: DXA BONE DENSITY AXIAL HISTORY: Estrogen deficiency TECHNIQUE: [facility] Dual energy absorptiometry (DEXA) of the lumbar spine, total left hip, and femoral neck was performed. COMPARISON: There are no prior studies for comparison. FINDINGS: The bone mineral density of the lumbar spine is 1.116 with a T-score of -0.5, and a Z-score of 1.7. The bone mineral density of the left total hip is 0.814 with a T-score of -1.5, and a Z-score of 0.5. The bone mineral density of the left femoral neck is 0.759 with a T-score of -2.0, and a Z-score of 0.2. FRACTURE RISK: The FRAX index suggests a risk of major osteoporotic fracture of 10.6%, and of hip fracture 2.5%. MM/XR DEXA axial skeleton IMPRESSION: Based on bone mineral density, and according to World Health Organization (WHO) criteria, the diagnosis is consistent with osteopenia. All bone density values are in grams per centimeter squared (g/cm2). Statistically, 68% of repeat scans fall within 1 SD (+/- 0.010 g/cm2 for AP spine L1-L4) and 1 SD (+/- 0.012 g/cm2 for femur total) FRAX is a trademark of the [employer]'s [place] [facility] Met[employer] Bone Disease, a World Health Organization (WHO) Collaborating Center. Electronically signed by: Ronnie Amin MD 01/05/2025 09:15 AM DOUG
--- OUTSIDE RECORDS SUMMARY | 2025-01-05 07:52 | XMS_ITS | Clinical Summary ---
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
== END 2025-01-05 07:50 | disposition home or self-care (01) ==
LOC: HO.MAMMO 07:49
PROVIDERS: PCP Internal Medicine; Visit Provider Internal Medicine
DX: Z13.820 Encounter for screening for osteoporosis (principal); Z78.0 Asymptomatic menopausal state
CPT/HCPCS: 77080

== ENCOUNTER → 2025-01-05 08:15 | Outpatient (BNV) | payer MEDICARE, SELFPAY | PROVIDERS: PCP Internal Medicine; Visit Provider Radiology Diagnostic Radiology | DX: E28.39 Other primary ovarian failure (principal) | CPT/HCPCS: 77080 ==

== ENCOUNTER 2025-04-10 16:50 | Outpatient (AMB) | payer MEDICARE, SELFPAY ==
--- OUTSIDE RECORDS SUMMARY | 2025-04-10 16:53 | XMS_ITS | Clinical Summary ---
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
--- NOTE | 2025-04-10 16:55 | A.OFFPC_ITS ---
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 Accompanied by: Self / Same As Patient Allergies Hydrocodone-Acetaminophen Allergy (Intermediate, Verified 04/10/25 17:05) hives ibuprofen [From Advil] Allergy (Intermediate, Verified 04/10/25 17:05) Palpitations Medication List - Last Reconciled 04/10/25 by Nubia Lam MD calcium carbonate (Calcium 600) 600 mg PO BID 90 days cholecalciferol (vitamin D3) 25 mcg PO DAILY 90 days fluticasone propionate 50 mcg/actuation (Flonase Allergy Relief) 1 spray intranasal DAILY 30 days hydrochlorothiazide 25 mg PO DAILY 90 days lidocaine 5% 1 appl topical BEDTIME PRN 30 days Tobacco use date assessed: 12/04/24 Fall risk assessment: No Falls in past year Last assessed Fall Risk: 04/10/25 Dental Screening Dental Screen Date: 04/10/25 Did you have a dental visit in the last 12 months?: No Did you have a dental problem in the last 6 months where you did not have access to dental care?: No Was dental information given to patient?: Patient declined HPI HPI Comments History of Present Illness Details The patient is a 75-year-old female presenting for physical exam. She has chronic management of hypertension and evaluation of persistent joint pain. Her medical history includes essential hypertension managed with hydrochlorothiazide and recent findings of osteopenia based on her bone densitometry results. Despite receiving a prescription for calcium supplementation, the patient indicated that she did not pick it up. She reports consistent joint pain in her fingers, with noticeable structural deviations and swelling suggestive of trigger finger, possibly consistent with rheumatoid arthritis despite negative rheumatoid factors. A recent evaluation noted vitamin D levels significantly elevated, which poses potential renal risks, necessitating a modification of her current supplementation regimen. - Received pneumonia and shingles vaccin es up to date. - Bone densitometry showing osteopenia; calcium and vitamin D supplementation recommended. - Cholesterol level improved from 214 to 189; continued monitoring advised. - Previous cessation of smoking discusse d as a positive lifestyle modification. [facility] Medical History Meningioma Acute lateral meniscus tear of right knee Dyslipidemia Right knee pain Degenerative disc disease, cervical Nausea Essential hypertension Thyroid nodule Surgical History History of left inguinal hernia History of Family History Mother Hypertension Father Hypertension Son Mental health disorder Social History Housing: Other Housing Other:: Mobile home Alcohol intake: never Patient Tobacco Use Status: Former Tobacco user Tobacco use type: Cigarette e-Cigarette/Vaping Use: Never Used Second Hand Smoke Exposure: No service: No Current occupational status: employed 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 1. Little interest or pleasure in doing things: not at all 2. Feeling down, depressed, or hopeless: not at all 3. Trouble falling or staying asleep, or sleeping too much: not at all 4. Feeling tired or having little energy: several days 5. Poor appetite or overeating: not at all 6. Feeling bad about yourself - or that you are a failure or have let yourself or your family down: not at all 7. Trouble concentrating on things, such as reading the newspaper or watching television: not at all 8. Moving or speaking so slowly that other people could have noticed. Or the opposite - being so fidgety or restless that you have been moving around a lot more than usual: not at all 9. Thoughts that you would be better off or of hurting yourself in some way: not at all Total score: 1 Depression Screening Interpretation: Negative Depression Screening Done: Yes 00128 - PHQ-9 Billing: Yes Source: Developed by Drs. Ronnie Brannon, Diamond Rodriguez, Ray Howard and colleagues, with an educational imani from [employer]. Thrive Questionnaire Date Thrive assessed: 04/03/25 I am a: Patient What is your living situation today?: I have a steady place to live Within the past 12 months, did the food you bought not last and you didn't have the money to get more?: Never true Within the past 12 months, did you worry whether your food would run out before you got money to buy more?: Never true Do you have trouble paying for medicines?: No Do you have trouble getting transportation to medical appointments?: No Do you have trouble paying your heating and electricity bill?: No Do you have trouble taking care of your child, family member or friend?: No Do you have trouble with day-to-day activities such as bathing, preparing meals, shopping, managing finances, etc.?: No Are you currently unemployed and looking for a job?: No Are you interested in more education?: No Please select the resources that you would like help with: None Currently or been in a relationship where the following occur: No concerns reported THRIVE Score: 0 AUDIT C Alcohol Use Questionnaire (AUDIT-C) 1. How often do you have a drink containing alcohol?: Never Total Score: 0 Score Reviewed/Action Taken: No PAN-7 AMB Questionnaire PAN-7 Date PAN - 7 assessed: 04/10/25 Feeling nervous, anxious, or on edge: 1 = Several days Not being able to stop or control worryin = Several days Worrying too much about different things: 1 = Several days Trouble relaxin = Several days Being so restless that it is hard to sit still: 1 = Several days Becoming easily annoyed or irritable: 1 = Several days Feeling afraid as if something awful might happen: 0 = Not at all Total PAN-7 score (0-4 normal; 5-9 mild; 10-14 moderate; 15-21 severe): 6 Source: Developed by Drs. Ronnie Brannon, Diamond Rodriguez, Ray Howard and colleagues, with an educational imani from [employer]. PAN-7 Assessment Billing PAN-7 Assessment Tool: PAN-7 Assessment 50967 Review of Systems Const All systems reviewed & are unremarkable except as noted in HPI and below Card Denies chest pain at rest, Denies chest pain with activity, Denies edema, Denies irregular heart rhythm, Denies claudication, Denies dyspnea, Denies dyspnea on exertion, Denies orthopnea, Denies paroxysmal nocturnal dyspnea and Denies slow heart rate Resp Denies cough, Denies dyspnea and Denies dyspnea on exertion GI Denies abdominal pain, Denies change in bowel habits, Denies excessive flatus, Denies nausea and Denies vomiting Denies urinary incontinence, Denies urinary hesitancy and Denies urinary urgency Musc Denies atrophy, Denies deformity, Reports arthralgias, Reports limited range of motion, Reports numbness and Reports stiffness Skin/Breast Denies bleeding lesions, Denies changing lesions and Denies rash Neuro Reports numbness Physical exam (Primary Care) Vital Signs: Last Vital Signs BP 192/108 H 04/10/25 16:56 BMI result Body Mass Index 22.1 Tobacco/Smoking Status: Tobacco use Status Tobacco use date assessed 12/04/24 04/10/25 17:01 Patient Tobacco Use Status Former Tobacco user 04/10/25 17:01 Tobacco use type Cigarette 04/10/25 17:01 e-Cigarette/Vaping Use Never Used 04/10/25 17:01 PHQ-9: PHQ-9 Score PHQ-9: Total score 1 04/10/25 17:01 Depression Screening Interpretation: Negative Thrive Assessment: Date of Thrive Assessment Date Thrive assessed 04/03/25 04/10/25 17:01 Currently or been in a relationship where the following occur: No concerns reported HENMT Head: Yes normal to inspection, Yes normocephalic and Yes atraumatic Ears: external ears normal Eyes General: appearance normal, both eyes and all related structures Eyelids: Yes eyelids normal Conjunctivae: conjunctivae normal Neck Neck: Yes normal visual inspection and Yes supple Resp Effort & Inspection: normal respiratory effort Auscultation: clear to auscultation bilaterally Cardio Jugular venous distension: no JVD Rate: regular rate Rhythm: regular rhythm Heart sounds: S1 normal heart sound present and S2 normal heart sound present GI Inspection: Yes normal to inspection Palpation (GI): Soft to palpation and nontender Auscultation: normal bowel sounds Skin General skin exam: no rashes or lesions noted Neuro General: no focal motor deficits Extrem Other: Metacarpal fusion bilateral, deformity in fingers Psych Appearance: grossly normal Coding Level of Care Code Complex EM visit Add On G2211 Diagnoses Physical exam Z00.00 Additional Codes PHQ-9 - 54407 - PHQ-9 Billing: Yes ([id number]) PAN-7 Assessment Billing - PAN-7 Assessment Tool: PAN-7 Assessment [id number] ([id number]) Time Spent (min) 35 Assessment & Plan Assessment & Plan (1) Physical exam: Code(s): Z00.00 - Encounter for general adult medical examination without abnormal findings Category: Medical Plan During the visit, we addressed both chronic conditions and preventive health aspects. For essential hypertension, medication adherence and monitoring were recommended. Vitamin D supplementation is to be decreased due to high serum levels, along with calcium supplementation to address osteopenia, upon prescription retrieval. Given the negative rheumatoid factor yet persistently painful and structurally distorted fingers, a rheumatology consultation remains prudent for possible rheumatoid arthritis management. Her antibodies were negative for rheumatoid arthritis and this is very specific. The patient is encouraged to persist in home exercises and consider potential rheumatological interventions. Preventive health measures, including vaccination adherence and cholesterol tracking, were discussed to maintain an overall healthy status. She declines colonoscopy or Cologuard or any type of screening for colon cancer. Patient was informed and verbally consented to the use of an ambient scribe for clinic note documentation during this visit. During the patient encounter, we discussed the management of her conditions, focusing on hypertension control and joint pain management. I explained the implications of elevated vitamin D levels and the adjustment of dosing to prevent renal issues. The decline in cholesterol levels was noted as a positive outcome. Vaccination status was reviewed, emphasizing the importance of maintaining them up to date. We explored the potential diagnosis of rheumatoid arthritis and discussed the role of rheumatology in confirming and managing this condition. I encouraged the patient regarding prescribed exercises for her trigger finger pain and outlined designed strategies to promote her engagement in these rehabilitation efforts. The patient was advised to schedule follow-up appointments as needed and keep her rheumatology consult. Medications: Refilled calcium carbonate (Calcium 600) 600 mg PO BID 90 days 180 tabs 1RF Patient Instructions: - Continue hydrochlorothiazide as prescribed for blood pressure control. - Stop current Vitamin D supplementation temporarily and resume with lower dosage after a few days. - Begin calcium supplementation as soon as the prescription is obtained. - Persist with finger exercises and physical therapy routines at home. - Keep the upcoming rheumatology appointment on May 01. - Follow up with primary care for continued health monitoring and management. - Maintain vaccinations and regular cholesterol checks to ensure preventive care compliance.
[2025-04-10 16:56] VITALS: BP 192/108; BMI 22.1
== END 2025-04-10 17:25 | disposition home or self-care (01) ==
LOC: HO.HMCH 16:51
PROVIDERS: PCP Internal Medicine; Visit Provider Internal Medicine
DX: Z00.00 Encounter for general adult medical examination without abnormal findings (principal)

== ENCOUNTER → 2025-04-10 16:50 | Outpatient (BNVA) | payer MEDICARE, SELFPAY | PROVIDERS: PCP Internal Medicine; Visit Provider Internal Medicine | DX: Z00.00 Encounter for general adult medical examination without abnormal findings (principal); I10 Essential (primary) hypertension; M25.50 Pain in unspecified joint; M85.80 Other specified disorders of bone density and structure, unspecified site; Z79.899 Other long term (current) drug therapy | CPT/HCPCS: 96127; 99397 ==

== ENCOUNTER 2025-05-01 07:23 | Outpatient (AMB) | payer MEDICARE, SELFPAY ==
--- NOTE | 2025-05-01 07:27 | MHC.OFFVIS ---
Vital Signs 05/01/25 07:40 Height 5 ft Weight 110 lb 14.28 oz BMI 21.7 BP 172/115 H Blood Pressure Location Lt brachial Position Sitting Pulse 84 Pulse Source Pulse Oximeter Pulse Oximetry (%) 98 Oxygen Delivery Method Room Air Intake Visit Reasons: joint pain Intake Note: Patient presents for joint pain. Patient stated she feels pain on her neck, lower back, LT shoulder, both wrist, fingers, LT hip, RT knee and toes. Patient also stated she has been feeling pain for a couple years. Patient doesn't take NSAID's because it upsets her stomach. Patient is not taking any pain management medications. Allergies Hydrocodone-Acetaminophen Allergy (Intermediate, Verified 05/01/25 07:39) hives ibuprofen [From Advil] Allergy (Intermediate, Verified 05/01/25 07:39) Palpitations Medication List - Last Reconciled 05/01/25 by Evette Kaye MD calcium carbonate (Calcium 600) 600 mg PO BID 90 days cholecalciferol (vitamin D3) 25 mcg PO DAILY 90 days fluticasone propionate 50 mcg/actuation (Flonase Allergy Relief) 1 spray intranasal DAILY 30 days hydrochlorothiazide 25 mg PO DAILY 90 days lidocaine 5% 1 appl topical BEDTIME PRN 30 days HPI Comments Details: Patient is a 75-year-old female with hypertension, hyperlipidemia, history of meningioma, 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 here today for evaluation of hand pain Patient reports that she has been having hand pain for the past 1 year Associated with AM stiffness lasting about 1 hour Sometimes she wakes up at about 2AM in the morning with her hands swollen unable to close them 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 Also complains of pain in her feet as well Family history: Sister - Crohn's disease [facility] Medical History (Updated 05/01/25 @ 08:38 by Evette Kaye MD) Osteopenia Rheumatoid arthritis Meningioma Acute lateral meniscus tear of right knee Dyslipidemia Right knee pain Degenerative disc disease, cervical Nausea Essential hypertension Thyroid nodule Surgical History History of left inguinal hernia History of Family History Mother Hypertension Father Hypertension Son Mental health disorder Social History Housing: Other Housing Other:: Mobile home Alcohol intake: never Patient Tobacco Use Status: Former Tobacco user Tobacco use type: Cigarette e-Cigarette/Vaping Use: Never Used Second Hand Smoke Exposure: No service: No Current occupational status: employed 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 Cognitive needs: No Hearing needs: No Vision needs: No Review of Systems Const Details: Review of Systems Constitutional: Denies fever, chills, weight loss ENT: Denies vision changes, eye pain or eye redness, dental caries, dry mouth GI: Denies nausea, vomiting, diarrhea, abdominal pain, change in BM Pulm: Denies SOB, BECERRA, hemoptysis, wheezing Cards: Denies chest pain, palpitations Skin: Denies Raynaud's, rash, nail changes, photosensitivity, FAN ENGINE ENGINEER: Denies headaches, weakness, paresthesias, recurrent falls MSK: as per HPI All other systems reviewed and are unremarkable except noted above Physical Exam Vital Signs: Last Vital Signs Pulse 84 05/01/25 07:40 BP 172/115 H 05/01/25 07:40 Pulse Ox 98 05/01/25 07:40 Oxygen Delivery Method Room Air 05/01/25 07:40 BMI result Body Mass Index 21.7 Vital signs reviewed Physical Examination CONSTITUITIONAL Patient alert and cooperative. Well appearing and in no apparent painful distress HEENT Conjunctiva and sclera clear.. ?No lymphadenopathy. ? CHEST/RESPIRATORY SYSTEM Normal respiratory effort and able to speak in complete sentences. ?Clear to auscultation bilaterally. ?No crackles, rales, rhonchi, wheezes heard. CARDIAC SYSTEM Regular rate and rhythm. ?S1 and S2 heard no murmurs. ?Radial pulses intact bilaterally MSK Hands: ?Able to make a fist. Right hand: TTP of the 2nd -4th MCPs with ulnar deviation at the level of the MCPs. Herbeden's nodes noted associated with TTP Left hand: Not as much TTP of the MCPs and no ulnar deviation noted. Herbeden's nodes Wrists: ?Full range of motion at the wrists without pain. ?TTP of the right wrist. No TTP of the left wrist Elbows: Full range of motion without pain. No tenderness, weakness, swelling, increased warmth or erythema. Shoulders: Full range of active range of motion without pain. TTP of the bilateral AC joints Knees: ?Full range of motion. ?No tenderness, swelling, increased warmth or erythema.?Bilateral crepitations felt Ankles: Full range of motion. ?No tenderness, swelling, increased warmth or erythema.? Feet: ?Negative squeeze test bilaterally. Right foot with TTP of the interphalangeal joints Tender points:?No tenderness to palpation of the bilateral trapezius, supraspinatus, greater trochanters, anterior costochondral junctions, bilateral gluteal areas, bilateral suboccipital muscle insertions SKIN Skin intact without rashes. Results Reviewed Results Reviewed: Laboratory Tests 12/15/24 07:48 ESR 6 Sodium 138 Potassium 3.9 Chloride 103 Carbon Dioxide 28 BUN 9 Creatinine 0.68 AST 27 ALT 18 Alkaline Phosphatase 64 25-OH Vitamin D Total 99.0 XR Hands 12/2024 FINDINGS (Right Hand): Three views of the right hand are submitted. The bones are osteopenic. There is no fracture or dislocation. There is ulnar deviation of the 3rd, 4th, and 5th fingers at the MCP joints, with associated joint space loss most significant third MCP. No definitive erosions evident. There is mild narrowing of the DIP and PIP joints of all the fingers, with productive bony changes. Mild to moderate osteoarthrosis first CMC joint and STT joints. Blunting of the ulnar styloid. Mild soft tissue prominence overlying the MCPs. IMPRESSION: Osteopenia with associated multifocal arthropathy as described. Findings support changes of rheumatoid arthritis, likely in conjunction with degenerative arthritis. FINDINGS (Left Hand): There is a semiflexion position of the distal and proximal interphalangeal joints of the second digit. There is a asymmetric joint space narrowing involving the proximal and distal interphalangeal joints. Sclerotic articular surface of the first carpometacarpal joint. No acute cortical disruption or gross malalignment. Osteopenia versus osteoporosis. No metallic or radiopaque foreign body. No subcutaneous emphysema. IMPRESSION: Osteoarthrosis, first carpometacarpal joint and interphalangeal joints of the digits. DEXA 12/2024 FINDINGS: The bone mineral density of the lumbar spine is 1.116 with a T-score of -0.5, and a Z-score of 1.7. The bone mineral density of the left total hip is 0.814 with a T-score of -1.5, and a Z-score of 0.5. The bone mineral density of the left femoral neck is 0.759 with a T-score of -2.0, and a Z-score of 0.2. FRACTURE RISK: The FRAX index suggests a risk of major osteoporotic fracture of 10.6%, and of hip fracture 2.5%. Assessment & Plan Assessment & Plan (1) Rheumatoid arthritis: Code(s): M06.9 - Rheumatoid arthritis, unspecified Category: Medical Qualifiers: Rheumatoid arthritis location: multiple sites Rheumatoid factor presence: without rheumatoid factor Qualified Code(s): M06.09 - Rheumatoid arthritis without rheumatoid factor, multiple sites Plan: #Seronegative RA Patient is a 75-year-old female with new diagnosis of seronegative rheumatoid arthritis based on history showing prolonged morning stiffness and hand swelling, exam with tenderness to palpation of the MCPs as well as ulnar deviation and x-rays showing changes consistent with rheumatoid arthritis. Her inflammatory markers and RF/CCP are negative. I had a long discussion with patient about her diagnosis. She also concomitantly has a osteoarthritis of her hands as evidenced by tenderness to palpation of the 1st CMC of the right, [place] nodes and tenderness to palpation of these notes as well. I discussed that while we can treat the rheumatoid arthritis, the osteoarthritis does not have any treatment. However leaving rheumatoid arthritis untreated can lead to worsening joint deformities. 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 Since she does not want to start a new long-term medication I offered her a 3 week course of prednisone to see what may be helped by immunosuppression. We will re-evaluate her in 4 weeks Plan - Prednisone 15 mg x 7 days then 10mg x 7 days then 5mg x 7 days then stop - RTC 4 weeks (2) Polyarticular osteoarthritis: Code(s): M15.9 - Polyosteoarthritis, unspecified Plan: #Polyarticular OA Patient with polyarticular osteoarthritis. This is complicating her underlying diagnosis of rheumatoid arthritis. We will try to see if we can control her RA symptoms prior to attempts to manage her OA pain (3) Essential hypertension: Code(s): I10 - Essential (primary) hypertension Category: Medical Plan: #Uncontrolled HTN Patient with uncontrolled hypertension today. Recommending her to follow up with her PCP. (4) Osteopenia: Comment: DEXA 12/2024: AP Spine -0.5, Left femur neck -2.0, Left femur total -1.5. FRAX 10.6/2.5 Code(s): M85.80 - Other specified disorders of bone density and structure, unspecified site Category: Medical Qualifiers: Osteopenia location: femoral neck Laterality: left Qualified Code(s): M85.852 - Other specified disorders of bone density and structure, left thigh Plan: #Osteopenia Patient with bone density done in December showing osteopenia of her left femur neck. She had improvement in her vitamin-D from prior. Discussed weight-bearing exercises with patient. FRAX index does not indicate treatment at this time. Plan I spent 60 minutes reviewing the record and labs, taking a history, examining the patient, discussing the treatment plan and explaining new diagnoses, ordering diagnostic work up and documenting in the medical record Medications: New prednisone Take 3 tablets for 7 days then 2 tablets for 7 days then 1 tablet for 7 days then stop 5 mg PO DIRECTED 42 tabs 0RF M06.9 - Rheumatoid arthritis, unspecified Coding Level of Care Code New Pt Level 5 (38267) Complex EM visit Add On G2211 Diagnoses Rheumatoid arthritis of multiple sites with negative rheumatoid factor M06.09 Rheumatoid arthritis location: multiple sites Rheumatoid factor presence: without rheumatoid factor Polyarticular osteoarthritis M15.9 Essential hypertension I10 Osteopenia of neck of left femur M85.852 Osteopenia location: femoral neck Laterality: left
[2025-05-01 07:40] VITALS: BP 172/115; PULSE 84; O2SAT 98; BMI 21.7
== END 2025-05-01 08:37 | disposition home or self-care (01) ==
LOC: HO.RHE 07:23
PROVIDERS: PCP Internal Medicine; Visit Provider Student in an Organized Health Care Education/Training Program
DX: M06.00 Rheumatoid arthritis without rheumatoid factor, unspecified site (principal); M15.9 Polyosteoarthritis, unspecified; I10 Essential (primary) hypertension; M85.852 Other specified disorders of bone density and structure, left thigh
CPT/HCPCS: 99205; G2211

== ENCOUNTER → 2025-05-01 07:23 | Outpatient (BNVA) | payer MEDICARE, SELFPAY | PROVIDERS: PCP Internal Medicine; Visit Provider Student in an Organized Health Care Education/Training Program | DX: M06.09 Rheumatoid arthritis without rheumatoid factor, multiple sites (principal); M15.9 Polyosteoarthritis, unspecified; I10 Essential (primary) hypertension; M85.852 Other specified disorders of bone density and structure, left thigh | CPT/HCPCS: 99202 ==

== ENCOUNTER 2025-10-15 16:47 | Outpatient (AMB) | payer MEDICARE, SELFPAY ==
[2025-10-15 17:18] VITALS: BP 190/98; PULSE 88; RESP 18; O2SAT 99; BMI 22.1
--- NOTE | 2025-10-15 17:18 | A.OFFPC_ITS ---
Vital Signs 10/15/25 17:18 Height 5 ft Weight 113 lb 4 oz BMI 22.1 BP 190/98 H Blood Pressure Location Lt brachial Position Sitting Respiration 18 Pulse 88 Pulse Source Pulse Oximeter Temp Source Temporal Artery Scan Pulse Oximetry (%) 99 Oxygen Delivery Method Room Air Intake Visit Reasons: bp Applied Exercise Physiologist Required: No Accompanied by: Self / Same As Patient Allergies Hydrocodone-Acetaminophen Allergy (Intermediate, Verified 10/15/25 17:36) hives ibuprofen (From Advil) Allergy (Intermediate, Verified 10/15/25 17:36) Palpitations Medication List - Last Reconciled 10/15/25 by Nubia Lam MD calcium carbonate (Calcium 600) 600 mg PO BID 90 days cholecalciferol (vitamin D3) 25 mcg PO DAILY 90 days fluticasone propionate 50 mcg/actuation (Flonase Allergy Relief) 1 spray intranasal DAILY 30 days hydrochlorothiazide 25 mg PO DAILY 90 days lidocaine 5% 1 appl topical BEDTIME PRN 30 days prednisone 5 mg PO DIRECTED Tobacco use date assessed: 10/15/25 Fall risk assessment: No Falls in past year Last assessed Fall Risk: 10/15/25 Dental Screening Dental Screen Date: 10/15/25 Did you have a dental visit in the last 12 months?: No Did you have a dental problem in the last 6 months where you did not have access to dental care?: No Was dental information given to patient?: No HPI HPI Comments History of Present Illness Details The patient is a 75 year old individual presenting for follow-up and management of hypertension. The patient reports home blood pressure readings of 140/110 mmHg, and a previous office visit reading showed a diastolic pressure of 115 mmHg. The patient is attempting to manage the condition naturally and is trying to find an osteopathic doctor. She declines the addition of an antihypertensive. Even though she is aware blood pressure can cause heart attack and stroke. The patient also has a history of both rheumatoid arthritis and osteoarthritis. The patient reports having a condition for the past year and has learned to manage it, stating a high tolerance for pain. She went to see crime prevention worker and declines any type of treatment that the crime prevention worker offer. The patient is making dietary changes including trying to eat furniture cleaner, baking at home, and avoiding chips and canned foods. [facility] Medical History Osteopenia Rheumatoid arthritis Meningioma Acute lateral meniscus tear of right knee Dyslipidemia Right knee pain Degenerative disc disease, cervical Nausea Essential hypertension Thyroid nodule Surgical History History of left inguinal hernia History of Family History Mother Hypertension Father Hypertension Son Mental health disorder Social History Housing: Other Housing Other:: Mobile home Alcohol intake: never Patient Tobacco Use Status: Former Tobacco user Tobacco use type: Cigarette e-Cigarette/Vaping Use: Never Used Second Hand Smoke Exposure: No service: No Current occupational status: employed 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 Cognitive needs: No Hearing needs: No Vision needs: No Questionnaire Thrive Questionnaire Date Thrive assessed: 04/03/25 I am a: Patient What is your living situation today?: I have a steady place to live Within the past 12 months, did the food you bought not last and you didn't have the money to get more?: Never true Within the past 12 months, did you worry whether your food would run out before you got money to buy more?: Never true Do you have trouble paying for medicines?: No Do you have trouble getting transportation to medical appointments?: No Do you have trouble paying your heating and electricity bill?: No Do you have trouble taking care of your child, family member or friend?: No Do you have trouble with day-to-day activities such as bathing, preparing meals, shopping, managing finances, etc.?: No Are you currently unemployed and looking for a job?: No Are you interested in more education?: No Please select the resources that you would like help with: None Currently or been in a relationship where the following occur: No concerns reported THRIVE Score: 0 AUDIT C Alcohol Use Questionnaire (AUDIT-C) 1. How often do you have a drink containing alcohol?: Never Total Score: 0 Score Reviewed/Action Taken: No PAN-7 AMB Questionnaire PAN-7 Date PAN - 7 assessed: 04/10/25 Feeling nervous, anxious, or on edge: 1 = Several days Not being able to stop or control worryin = Several days Worrying too much about different things: 1 = Several days Trouble relaxin = Several days Being so restless that it is hard to sit still: 1 = Several days Becoming easily annoyed or irritable: 1 = Several days Feeling afraid as if something awful might happen: 0 = Not at all Total PAN-7 score (0-4 normal; 5-9 mild; 10-14 moderate; 15-21 severe): 6 Source: Developed by Drs. Ronnie Brannon, Diamond Rodriguez, Ray Howard and colleagues, with an educational imani from [employer] PAN-7 Assessment Billing PAN-7 Assessment Tool: PAN-7 Assessment 07090 Review of Systems Const All systems reviewed & are unremarkable except as noted in HPI and below Card Denies chest pain at rest, Denies chest pain with activity, Denies edema, Denies irregular heart rhythm, Denies claudication, Denies dyspnea, Denies dyspnea on exertion, Denies orthopnea, Denies paroxysmal nocturnal dyspnea and Denies slow heart rate Resp Denies cough, Denies dyspnea and Denies dyspnea on exertion GI Denies abdominal pain, Denies change in bowel habits, Denies excessive flatus, Denies nausea and Denies vomiting Neuro Denies lack of coordination Physical exam (Primary Care) Vital Signs: Last Vital Signs Pulse 88 10/15/25 17:18 Resp 18 10/15/25 17:18 BP 190/98 H 10/15/25 17:18 Pulse Ox 99 10/15/25 17:18 Oxygen Delivery Method Room Air 10/15/25 17:18 BMI result Body Mass Index 22.1 Tobacco/Smoking Status: Tobacco use Status Tobacco use date assessed 10/15/25 10/15/25 17:23 Patient Tobacco Use Status Former Tobacco user 10/15/25 17:23 Tobacco use type Cigarette 10/15/25 17:23 e-Cigarette/Vaping Use Never Used 10/15/25 17:23 Thrive Assessment: Date of Thrive Assessment Date Thrive assessed 04/03/25 10/15/25 17:23 Currently or been in a relationship where the following occur: No concerns reported Resp Effort & Inspection: normal respiratory effort Auscultation: clear to auscultation bilaterally Cardio Jugular venous distension: no JVD Rate: regular rate Rhythm: regular rhythm Heart sounds: S1 normal heart sound present and S2 normal heart sound present Extrem General: Yes full ROM Coding Level of Care Code Est Pt Level 3 (73688) Diagnoses Essential hypertension I10 Rheumatoid arthritis of multiple sites with negative rheumatoid factor M06.09 Rheumatoid arthritis location: multiple sites Rheumatoid factor presence: without rheumatoid factor Additional Codes PAN-7 Assessment Billing - PAN-7 Assessment Tool: PAN-7 Assessment 76413 ([id number]) Time Spent (min) 19 Assessment & Plan Assessment & Plan (1) Essential hypertension: Code(s): I10 - Essential (primary) hypertension Category: Medical (2) Rheumatoid arthritis: Code(s): M06.9 - Rheumatoid arthritis, unspecified Category: Medical Qualifiers: Rheumatoid arthritis location: multiple sites Rheumatoid factor presence: without rheumatoid factor Qualified Code(s): M06.09 - Rheumatoid arthritis without rheumatoid factor, multiple sites Plan Plan 1. Hypertension The patient presents with significantly elevated blood pressure, with an in- office reading of 190/98 mmHg and a reported home reading of 140/110 mmHg. The risk of heart attack or stroke with such high pressures was discussed. The patient declined to start new medication, expressing a preference for natural management, including dietary modifications. We will re-evaluate the patient's blood pressure in three months. 2. Rheumatoid Arthritis And Osteoarthritis The patient has a history of both rheumatoid and osteoarthritis and has been managing the condition for about a year. The patient is trying to find an osteopathic doctor for continued management.
--- OUTSIDE RECORDS SUMMARY | 2025-10-15 20:28 | XMS_ITS | Clinical Summary ---
Author Organization [facility] ity Address [address] [place] [address] Care Team Providers Care Transport Analyst Name Role Phone Unavailable Primary Care Provider [...] 2001 Zoster Vaccines (1 of 2) 2001 Depression Screening 11/22/2024 COVID-19 Vaccine (1 - 2024-2 6 season) 2025 Influenza Vaccine (#1) 2025 RSV Immunization Adult Patie nts (1 [...]
== END 2025-10-15 17:49 | disposition home or self-care (01) ==
LOC: HO.HMCH 16:48
PROVIDERS: PCP Internal Medicine; Visit Provider Internal Medicine
DX: I10 Essential (primary) hypertension (principal); M06.09 Rheumatoid arthritis without rheumatoid factor, multiple sites

== ENCOUNTER → 2025-10-15 16:47 | Outpatient (BNVA) | payer MEDICARE, SELFPAY | PROVIDERS: PCP Internal Medicine; Visit Provider Internal Medicine | DX: I10 Essential (primary) hypertension (principal); M06.09 Rheumatoid arthritis without rheumatoid factor, multiple sites; Z79.899 Other long term (current) drug therapy | CPT/HCPCS: 96127; 99212 ==